=== PATIENT | female | born 1945 | race Caucasian/White ===

== ENCOUNTER 2021-04-23 22:07 | Emergency (ER) | payer MEDICARE ==
[2021-04-23] MEDS ORDERED: DIPHENHYDRAMINE 50 MG/ML VIAL ONE (22:43)
[2021-04-23] MEDS ORDERED: METHYLPREDNISOLONE 125 MG INJ ONE (22:43)
[2021-04-23] MEDS ORDERED: FAMOTIDINE 20 MG/2 ML VIAL IV ONE (22:44)
--- NOTE | 2021-04-24 00:17 | EDPHYS ---
Physician Documentation [facility] Name: Keeley Bush Age: 75 yrs Sex: Female : 1945 Arrival Date: 04/23/2021 Time: 22:08 Bed 27 Private MD: VIDA Physician Jeffery Russo HPI: 04/24 00:12 This 75 yrs old Female presents to ER via Wheelchair with complaints of ps1 Breathing Difficulty. 00:12 Patient presenting for allergic reaction. She reportedly ate some ice cream which she ps1 had never had before. Shortly thereafter she started having redness rash and reported difficulty breathing. She came to the emergency department for evaluation. She is not hypoxic there is no angioedema uvula is midline without hydrops. No stridor. No involvement of the oropharynx. Historical: - Allergies: 04/23 22:21 peanuts; bb - PMHx: 22:21 Anxiety; COPD; Hypertension; bb - Immunization history:: Adult Immunizations up to date, Client reports receiving the 1st dose of the Covid vaccine. - Social history:: Smoking status: unknown. ROS: 04/24 00:12 Constitutional: Negative for fever, chills, and weight loss, Eyes: Negative for injury, ps1 pain, redness, and discharge, ENT: Negative for injury, pain, and discharge, Neck: Negative for injury, pain, and swelling, Cardiovascular: Negative for chest pain, palpitations, and edema, Abdomen/GI: Negative for abdominal pain, nausea, vomiting, diarrhea, and constipation, MS/Extremity: Negative for injury and deformity, Neuro: Negative for headache, weakness, numbness, tingling, and seizure. Respiratory: Positive for shortness of breath. Skin: Positive for rash. Exam: 00:12 Constitutional: This is a well developed, well nourished patient who is awake, alert, ps1 and in no acute distress. Head/Face: Normocephalic, atraumatic. Eyes: Pupils equal round and reactive to light, extra-ocular motions intact. Lids and lashes normal. Conjunctiva and sclera are non-icteric and not injected. Cardiovascular: Regular rate and rhythm. No gallops, murmurs, or rubs. Normal PMI, no JVD. No pulse deficits. Respiratory: Lungs have equal breath sounds bilaterally, clear to auscultation and percussion. No rales, rhonchi or wheezes noted. No increased work of breathing, no retractions or nasal flaring. Abdomen/GI: Soft, non-tender, with normal bowel sounds. No distension or tympany. No guarding or rebound. No evidence of tenderness throughout. 00:12 ENT: Mouth: is normal, Posterior pharynx: is normal, Uvula: normal, midline, pooling of secretions, is not appreciated, Voice: is normal. 00:12 Respiratory: the patient does not display signs of respiratory distress, Respirations: normal, Breath sounds: are clear throughout. 00:12 Skin: Appearance: flushing, that are moderate. Vital Signs: 04/23 22:19 BP 100 / 67; Pulse 99; Resp 28 S; Temp 97.8(O); Pulse Ox 92% on R/A; Weight 58.97 kg bb (R); Height 5 ft. 6 in. (167.64 cm) (R); 23:06 BP 107 / 70; Pulse 90; Resp 20; Temp 98.1; Pulse Ox 100% on 2 lpm NC; Weight 58.97 kg; mr2 Height 5 ft. 7 in. (170.18 cm); 23:06 Body Mass Index 20.36 (58.97 kg, 170.18 cm) mr2 MDM: 22:29 Patient medically screened. ps1 04/24 00:14 Differential diagnosis: Allergic reaction, anaphylaxis, rash and nonspecific skin ps1 eruption, and others. Data reviewed: vital signs, nurses notes, and as a result, I will administer steroids, Solumedrol, Benadryl and Pepcid. Response to treatment: the patient's symptoms have markedly improved after treatment, the patient's symptoms have resolved after treatment. ED course: 75-year-old female presenting for evaluation of allergic reaction. No anaphylaxis. Blood pressure is normal. Responded to treatment without worsening. Rash improved. Shortness of breath gone. Home with return precautions if symptoms worsen as documented discharge instructions.. Administered Medications: 04/23 22:53 Drug: Benadryl (diphenhydrAMINE) 25 mg Route: IM; Site: right deltoid; mr2 22:53 Drug: SOLU-Medrol (methylPREDNISolone sodium succinate) 125 mg Route: IM; Site: right mr2 deltoid; 22:53 Drug: Pepcid (famotidine) 20 mg Route: IVP; Site: left antecubital; mr2 Disposition Summary: 04/24/21 00:16 Discharge Ordered Location: Home ps1 Problem: new ps1 Symptoms: are resolved ps1 Condition: Stable ps1 Diagnosis - Allergic reaction ps1 Followup: ps1 - With: Private Physician - When: As needed - Reason: Recheck today's complaints, Continuance of care, Re-evaluation by your physician Followup: ps1 - With: Emergency Department - When: As needed - Reason: Trouble breathing, Worsening of condition Discharge Instructions: - Discharge Summary Sheet ps1 - Food Allergy ps1 Forms: - Medication Reconciliation Form ps1 - Thank You Letter ps1 - Antibiotic Education ps1 - Prescription Opioid Use ps1 Signatures: Jessica Horn RN RN bb Jeffery Russo MD MD ps1 Bobby Lewis RN RN mr2
--- NOTE | 2021-04-24 00:17 | ER ---
Nurse's Notes [facility] Name: Keeley Bush Age: 75 yrs Sex: Female : 1945 Arrival Date: 04/23/2021 Time: 22:08 Bed 27 Private MD: Diagnosis: Allergic reaction Presentation: 04/23 22:19 Chief complaint: Patient states: she thinks she is having an allergic reaction she had bb difficulty breathing, is itching all over, feels like her lips are swollen. She ate some butterfinger ice cream and she is allergic to peanuts. Coronavirus screen: difficulty breathing, Client presents with at least one sign or symptom that may indicate coronavirus-19. Standard/surgical mask placed on the client. Ebola Screen: No symptoms or risks identified at this time. Initial Sepsis Screen: Does the patient meet any 2 criteria? RR > 20 per min. HR > 90 bpm. Yes Does the patient have a suspected source of infection? No. Patient's initial sepsis screen is negative. Risk Assessment: Do you want to hurt yourself or someone else? Patient reports no desire to harm self or others. Onset of symptoms was April 23, 2021. 22:19 Method Of Arrival: Wheelchair bb 22:19 Acuity: YIN 2 bb Triage Assessment: 23:05 General: Appears distressed, Behavior is anxious. Pain: Denies pain. Respiratory: mr2 Reports shortness of breath at rest Onset: The symptoms/episode began/occurred just prior to arrival, the patient has moderate shortness of breath. Historical: - Allergies: 22:21 peanuts; bb - PMHx: 22:21 Anxiety; COPD; Hypertension; bb - Immunization history:: Adult Immunizations up to date, Client reports receiving the 1st dose of the Covid vaccine. - Social history:: Smoking status: unknown. Screenin:09 Abuse screen: Denies threats or abuse. Denies injuries from another. Nutritional mr2 screening: No deficits noted. Tuberculosis screening: No symptoms or risk factors identified. Fall Risk Mental Status-. Fall Risk None identified. Assessment: 20:00 General: Appears distressed, Behavior is anxious. Derm: mr2 22:00 Cardiovascular: Rhythm is sinus tachycardia. Respiratory: Airway is patent Respiratory mr2 effort is labored, Breath sounds with wheezes bilaterally. Onset: The symptoms/episode began/occurred just prior to arrival, the patient has moderate shortness of breath Denies. EENT: Vital Signs: 22:19 BP 100 / 67; Pulse 99; Resp 28 S; Temp 97.8(O); Pulse Ox 92% on R/A; Weight 58.97 kg bb (R); Height 5 ft. 6 in. (167.64 cm) (R); 23:06 BP 107 / 70; Pulse 90; Resp 20; Temp 98.1; Pulse Ox 100% on 2 lpm NC; Weight 58.97 kg; mr2 Height 5 ft. 7 in. (170.18 cm); 23:06 Body Mass Index 20.36 (58.97 kg, 170.18 cm) mr2 ED Course: 22:08 Patient arrived in ED. bp1 22:21 Triage completed. bb 22:21 Arm band placed on Patient placed in an exam room, on a stretcher, on oxygen, on pulse bb oximetry. Family accompanied patient. 22:25 Jeffery Russo MD is Attending Physician. ps1 22:30 Patient has correct armband on for positive identification. Bed in low position. Call mr2 light in reach. Side rails up X2. 22:51 Bobby Lewis RN is Primary Nurse. mr2 23:10 No provider procedures requiring assistance completed. Patient did not have IV access mr2 during this emergency room visit. Administered Medications: 22:53 Drug: Benadryl (diphenhydrAMINE) 25 mg Route: IM; Site: right deltoid; mr2 22:53 Drug: SOLU-Medrol (methylPREDNISolone sodium succinate) 125 mg Route: IM; Site: right mr2 deltoid; 22:53 Drug: Pepcid (famotidine) 20 mg Route: IVP; Site: left antecubital; mr2 Outcome: 23:10 Condition: improved mr2 04/24 00:16 Discharge ordered by . ps1 00:36 Discharged to home ambulatory. mr2 00:36 Discharge instructions given to patient, Instructed on discharge instructions, medication usage. 00:38 Patient left the ED. mr2 Signatures: Jessica Horn, RN RN bb Jeffery Russo MD MD ps1 Cora Garcia bp1 Bobby Lewis RN RN mr2
[2021-04-24 00:49] VITALS: BP 107/70; TEMP 98.1; O2SAT 100
== END 2021-04-24 00:38 | disposition home or self-care (01) ==
LOC: ER 22:07
DX: R21 Rash and other nonspecific skin eruption (principal); I10 Essential (primary) hypertension; J44.9 Chronic obstructive pulmonary disease, unspecified; Z91.010 Allergy to peanuts
CPT/HCPCS: 96372; 96374; 99284; J1200; J2930

== ENCOUNTER 2021-06-23 10:38 | Emergency (ER) | payer OTHER ==
--- OUTSIDE RECORDS SUMMARY | 2021-06-23 10:42 | XMS REPORT | Continuity of Care Document ---
:1945 Author Organization [facility] t Address [address] [place] [address] Care Team Providers Name Role Phone Ana DILLARD Primary Care Physician Unavailable JC_Jose Attending Clinician Unavailable Jc Attending Clinician [phone] Jessica GOLDSTEIN Attending Clinician Unavailable Jessica Goldstein MD Attending Clinician Renate JUDGE Attending Clinician Rafi Warner MD Attending Clinician Doctor Unassigned, Name Attending Clinician Unavailable PETROS Admitting Clinician Unavailable Jessica GOLDSTEIN Admitting Clinician Unavailable Payers Payer Name Policy Type Policy Number Effective Date Expiration Date S keshawn [facility] MEDICARE [id number] COMPLETE (MEDICARE REPLACEMENT HMO) WELL[employer]/AARP [id number] 2020 MEDICARE ADVANTAGE 00:00:00 [employer] [id number] 2021 (MEDICARE 00:00:00 REPLACEMENT HMO) Problems Condition Condition Condition Status Onset Resolution Last Treating Co mments Source Name Details Category Date Date Treatment Clinician Date Status Status Disease Active 2018-07 Univers post hip post hip 0-17 ity of surgery surgery 00:00: [place] [address] Medical Branch Post-op Post-op Disease Active 2018-07 Univers pain pain 0-16 ity of 00:00: [place] [address] Medical Branch Encounter Encounter Disease Active 2017-07 Uni vers for for 1-04 ity of pre[place] live 00 Medical cardiovasc cardiovasc Br anch ular ular clearance clearance Essential Essential Disease Active 2017-07 Uni vers hypertensi hypertensi 1-04 it y of on on 00:00: [address] Left hip Left hip Disease Active 2017-07 Unive rs pain pain -03 ity of 00:00: [address] Allergies, Adverse Reactions, Alerts Allergy Allergy Status Severity Reaction(s) Onset Inactive Treating Comm ents Source Name Type Date Date Clinician NO KNOWN Drug Active Univers ALLERGIE Class ity of S [facility] Social History Social Habit Start Date Stop Date Quantity Comments Source History of tobacco Cigarette Smoker University of use [facility] Exposure to Not sure [facility] SARS-CoV-2 (event) [facility] Alcohol intake 2021-06-02 2021-06-02 Current University of 00:00:00 00:00:00 non-drinker of [facility] alcohol [place] (finding) Cigarettes smoked 2017-12-14 2017-12-14 [facility] ity of current (pack per 00:00:00 00:00:00 ) - Reported Branch Tobacco use and 2017-12-14 2017-12-14 Never used Universit y of exposure 00:00:00 00:00:00 [facility] Sex Ass[birth year] Universit y of 00:00:00 00:00:00 [facility] Smoking Status Start Date Stop Date Source Current every day smoker 2017-12-14 00:00:00 Uni versity of [facility] Medications Ordered Filled Start Stop Current Ordering Indication Dosage Frequency Signature Comments Components Source Medication Medication Date Date Medication? Clinician (SIG) Name Name ePHEDrine 2020-07- No Slow IV Univ ers 25 mg/5 mL 08-02 Push, ONCE it y of (5 mg/mL) 17:07: 17:20 INTRA [place] syringe 00 :01 PROCEDURE, Medica l Starting Branch on Mon06/02/21 at 1107, Until Mon06/02/21 at 1120, Routine, Intra-op water for 2020-07- No PRN, Univers irrigation 08-02 Starting ity of irrigation 16:59: 20:10 on [place] solution 00 :42 06/02/21 Medical at 1059, Branch Until Mon06/02/21 at 1410, Routine, Intra-op simethicone 2020-07- No PRN, Unive rs (GAS RELIEF 08-02 Starting ity of (SIMETHICON 16:59: 20:10 on Mon [place] as E)) 40 00 :42 06/02/21 Medical mg/0.6 mL at 1059, Branch drops Until Mon06/02/21 at 1410, Routine, Intra-op propofoL IV 2020-07- No IV Unive rs infusion 08-02 Infusion, ity o f 16:52: 17:20 CONTINUOUS [place] 00 :01 PRN, Medical Starting Branch on Mon06/02/21 at 1052, Until Mon06/02/21 at 1120, Routine, Intra-op FENTanyl PF 2020-07- No Intravenou Univers (SUBLIMAZE 08-02 s, ONCE ity o f (PF)) 16:52: 17:20 INTRA [place] injection 00 :01 PROCEDURE, Medi nettie Starting Branch on Mon06/02/21 at 1052, Until Mon06/02/21 at 1120, Routine, Intra-op lidocaine 2020-07- No Intravenou U nivers 1% 08-02 s, ONCE ity of (XYLOCAINE) 16:50: 17:20 [place] 100 mg/10 00 :01 PROCEDURE, Medi nettie mL (1 %) Starting Branch injection on Mon06/02/21 at 1050, Until Mon06/02/21 at 1120, Routine, Intra-op lactated 2020-07- No IV Univers ringers IV 08-02 Infusion, ity of infusion 16:49: 17:20 [place]OUS [place] 00 :01 PRN, Medical Starting Branch on Mon06/02/21 at 1049, Until Mon06/02/21 at 1120, Routine, Intra-op lactated 2020-07- No 1000mL at 42 Unive rs ringers IV 08-02-24 mL/hr, ity of infusion 15:30: 15:58 1,000 mL, [place] 1,000 mL 00 :00 IV Medical Infusion, Branch ONCE, 1 dose, On Mon06/02/21 at 0930, Routine, DSU Pre-op furosemide 2020-07 Yes 20mg Take 20 mg U nivers 20 mg 1-24 by mouth ity of tablet 12:10: daily. [place] [address] Medical Branch furosemide 2020-07 Yes 20mg Take 20 mg U nivers 20 mg 1-24 by mouth ity of tablet 12:10: daily. [address] Branch furosemide 2020-07 Yes 20mg Take 20 mg U nivers 20 mg 1-24 by mouth ity of tablet 12:10: daily. [address] Branch albuterol 2017-07 Yes 2.5mg Inhale 3 Uni vers 2.5 mg /3 1-07 mL every 4 ity of mL (0.083 00:00: (four) [place] %) 00 hours as Medical nebulizer needed for Bran ch solution Shortness of Breath or Wheezing. diltiazem 2017-07 Yes 240mg Take 1 Unive rs XR 240 mg 1-07 capsule by ity of 24 hr 00:00: mouth [place] capsule 00 daily. Medical Branch sennosides 2017-07 Yes 8.6mg Take 1 Univ ers 8.6 mg 1-07 tablet by ity of tablet 00:00: mouth 2 [place] 00 (two) Medical times Branch daily. buPROPion 2017-07 Yes 100mg Take 1 Unive rs 100 mg 1-07 tablet by ity of tablet 00:00: mouth [place] 00 daily. Medical Branch isosorbide 2017-07 Yes 30mg Take 1 Unive rs mononitrate 1-07 tablet by ity of 30 mg 24 hr 00:00: mouth [place] tablet 00 daily. Medical Branch acetaminoph 2017-07 Yes 1{tbl} Take 1-2 Univers en-codeine 1-07 tablets by ity of (TYLENOL-CO 00:00: mouth [place] DEINE #3) 00 every 4 Medical 300-30 mg (four) Branch tablet hours as needed for Pain (scale 1-3) or Pain (scale 4-6). albuterol 2017-07 Yes 2.5mg Inhale 3 Uni vers 2.5 mg /3 1-07 mL every 4 ity of mL (0.083 00:00: (four) [place] %) 00 hours as Medical nebulizer needed for Bran ch solution Shortness of Breath or Wheezing. diltiazem 2017-07 Yes 240mg Take 1 Unive rs XR 240 mg 1-07 capsule by ity of 24 hr 00:00: mouth [place] capsule 00 daily. Medical Branch sennosides 2017-07 Yes 8.6mg Take 1 Univ ers 8.6 mg 1-07 tablet by ity of tablet 00:00: mouth 2 [place] 00 (two) Medical times Branch daily. buPROPion 2017-07 Yes 100mg Take 1 Unive rs 100 mg 1-07 tablet by ity of tablet 00:00: mouth [place] 00 daily. Medical Branch isosorbide 2017-07 Yes 30mg Take 1 Unive rs mononitrate 1-07 tablet by ity of 30 mg 24 hr 00:00: mouth [place] tablet 00 daily. Medical Branch acetaminoph 2017-07 Yes 1{tbl} Take 1-2 Univers en-codeine 1-07 tablets by ity of (TYLENOL-CO 00:00: mouth [place] DEINE #3) 00 every 4 Medical 300-30 mg (four) Branch tablet hours as needed for Pain (scale 1-3) or Pain (scale 4-6). albuterol 2017-07 Yes 2.5mg Inhale 3 Uni vers 2.5 mg /3 1-07 mL every 4 ity of mL (0.083 00:00: (four) [place] %) 00 hours as Medical nebulizer needed for Bran ch solution Shortness of Breath or Wheezing. diltiazem 2017-07 Yes 240mg Take 1 Unive rs XR 240 mg 1-07 capsule by ity of 24 hr 00:00: mouth [place] capsule 00 daily. Medical Branch sennosides 2017-07 Yes 8.6mg Take 1 Univ ers 8.6 mg 1-07 tablet by ity of tablet 00:00: mouth 2 [place] 00 (two) Medical times Branch daily. buPROPion 2017-07 Yes 100mg Take 1 Unive rs 100 mg 1-07 tablet by ity of tablet 00:00: mouth [place] 00 daily. Medical Branch isosorbide 2017-07 Yes 30mg Take 1 Unive rs mononitrate 1-07 tablet by ity of 30 mg 24 hr 00:00: mouth [place] tablet 00 daily. Medical Branch acetaminoph 2017-07 Yes 1{tbl} Take 1-2 Univers en-codeine 1-07 tablets by ity of (TYLENOL-CO 00:00: mouth [place] DEINE #3) 00 every 4 Medical 300-30 mg (four) Branch tablet hours as needed for Pain (scale 1-3) or Pain (scale 4-6). Immunizations Ordered Filled Immunization Date Status Comments [facility] e Immunization Name Name SARS-COV-2 COVID-19 2020-09-11 Completed Unive rsity of MODERNA VACCINE 00:00:00 [facility] Branch SARS-COV-2 COVID-19 2020-09-11 Completed Unive rsity of MODERNA VACCINE 00:00:00 [facility] Branch SARS-COV-2 COVID-19 2020-09-11 Completed Unive rsity of MODERNA VACCINE 00:00:00 [facility] Branch SARS-COV-2 COVID-19 2020-08-14 Completed Unive rsity of MODERNA VACCINE 00:00:00 [facility] Branch SARS-COV-2 COVID-19 2020-08-14 Completed Unive rsity of MODERNA VACCINE 00:00:00 [facility] SARS-COV-2 COVID-19 2020-08-14 Completed Unive rsity of MODERNA VACCINE 00:00:00 [facility] Pneumococcal 2019-04-25 Completed University o f Polysaccharide, 00:00:00 [facility] PPSV23 (PNEUMOVAX) Branch Influenza High Dose 2019-04-25 Completed Unive rsity of 00:00:00 [facility] Pneumococcal 2019-04-25 Completed University o f Polysaccharide, 00:00:00 [facility] PPSV23 (PNEUMOVAX) Branch Influenza High Dose 2019-04-25 Completed Unive rsity of 00:00:00 [facility] Pneumococcal 2019-04-25 Completed University o f Polysaccharide, 00:00:00 [facility] PPSV23 (PNEUMOVAX) Branch Influenza High Dose 2019-04-25 Completed Unive rsity of 00:00:00 [facility] Vital Signs Vital Name Observation Time Observation Value Comments Source Systolic blood 2021-06-02 17:19:00 121 mm[Hg] Univer sity of pressure [facility] Diastolic blood 2021-06-02 17:19:00 72 mm[Hg] Unive rsity of pressure [facility] Heart rate 2021-06-02 17:19:00 88 /min [facility] Body temperature 2021-06-02 17:19:00 36.39 [facility] Oxygen saturation in 2021-06-02 17:19:00 99 /min [facility] blood by [facility] Pulse oximetry [place] Respiratory rate 2021-06-02 15:51:00 18 /min [facility] Body height 2021-05-18 16:49:00 167.6 cm [facility] Body weight 2021-05-18 16:49:00 61.2 kg [facility] BMI 2021-05-18 16:49:00 21.79 kg/m2 [facility] Respiratory rate 2021-06-02 17:16:00 15 /min [facility] Procedures Procedure Date / Time Performing Clinician Source Performed COLONOSCOPY (ENDO) 2021-06-02 17:02:26 Anshu Dillard [facility] EGD (ENDO) 2021-06-02 16:48:00 Anshu Dillard [facility] ESOPHAGOGASTRODUODENOSCOPY 2021-06-02 16:39:00 John Goldstein [facility] COLONOSCOPY 2021-06-02 16:39:00 Morgan Goldstein [facility] PATIENT QUESTIONNAIRE 2021-06-02 06:01:00 Doctor Unassigned, [facility] Name [facility] EXTERNAL PROVIDER RECORDS 2021-05-18 06:01:00 Doctor Unassigned, [facility] Name [facility] EXTERNAL PROVIDER RECORDS 2021-05-17 06:01:00 Doctor Unassigned, [facility] Name [facility] Encounters Start End Encounter Admission Attending Care Care Encounter Source Date/Time Date/Time Type Type Clinicians Facility Department ID 2021-06-11 2021-06-11 Outpatient [facility] [id number] [place] 11:24:00 11:24:00 [facility] 2021-06-11 2021-06-11 Outpatient [facility] [id number] 00:00:00 00:00:00 Sabiha [id number] 2021-06-10 2021-06-10 Outpatient [facility] [id number] [place] 06:16:00 06:16:00 [facility] 2021-06-09 2021-06-09 Outpatient [facility] [id number] [place] 11:48:00 11:48:00 [facility]01 [facility] 2021-06-02 2021-06-02 Outpatient R [facility] [id number] Univers 09:17:00 12:10:00 MORGAN Jacome [facility] 2021-06-02 2021-06-02 Surgery [facility] [id number] Univers 10:30:00 11:22:00 eMorgan [id number] [facility]y [facility] [id number] [id number] [facility] 020 Branch 2021-06-02 2021-06-02 Anesthesia Hector Dewitt [facility] [id number] Univers 10:49:00 11:19:00 Event Justin Warner [id number] [facility]y [facility] [id number] [id number] [facility] 020 Branch 2021-06-02 2021-06-02 Orders Doctor KASEY [id number] Univers 00:00:00 00:00:00 Only Unassigned, KECIA [id number] ity of [place] [facility] [id number] [place] [id number] [place] [address] Branch 2021-06-01 2021-06-[address] [facility] [id number] Univers 09:00:00 09:00:00 MORGAN Jacome [facility] 2021-02-18 2021-02-18 Outpatient DMG [id number] [facility] 11:00:00 11:00:00 0812 Medica l Group Results This patient has no known results.
[2021-06-23 11:52] LABS: Absolute Lymphocytes (CBC) 0.3 K/uL (0.7-4.9); Basophils % 0.2 % (0-1.3); Hematocrit 32.6 % (36.0-45.0); Lymphocytes % 3.2 % (15.3-44.8); MPV 8.2 fL (7.6-11.3); RBC Red Blood Cell Count 3.48 M/uL (3.86-4.86)
--- NOTE | 2021-06-23 11:59 | RAD REPORT ---
EXAM DESCRIPTION: RAD - Chest Single View - 06/23/2021 11:32 am CLINICAL HISTORY: SOB COMPARISON: Chest Single View dated 07/03/2017; Chest Single View dated 06/15/2017; Chest Single View dated 03/02/2017 FINDINGS: Lines: None. Lungs: Scarring in the left mid lung. Mild irregular nodularity in the right mid lung. Pleural: No significant pleural effusions or pneumothorax. Cardiac: The heart size is within normal limits. Bones: No acute fractures. ACDF in the cervical spine. Other: IMPRESSION: Right mid lung nodularity could reflect infection or inflammation versus chronic changes .
[2021-06-23 12:07] LABS: Protime INR 1.07
[2021-06-23 12:45] LABS: ALT/SGPT 67 U/L (12-78); AST/SGOT 74 U/L (15-37); Albumin 2.7 g/dL (3.4-5.0); Alkaline Phosphatase 351 U/L (45-117); BUN Blood Urea Nitrogen 61 mg/dL (7-18); Bicarbonate 21 mmol/L (21-32); Bilirubin Direct 0.2 mg/dL (0-0.2); Bilirubin Total 0.5 mg/dL (0.2-1.0); Glucose Level 92 mg/dL (74-106); Magnesium 2.7 mg/dL (1.8-2.4); NT PRO-BNP 1680 pg/mL (<450); Potassium 4.8 mmol/L (3.5-5.1); Protein, Total 6.1 g/dL (6.4-8.2); Sodium Level 141 mmol/L (136-145); Troponin (Emerg Dept Use Only) < 0.02 ng/mL (0.0-0.045)
[2021-06-23 12:55] LABS: Blood Morphology Comment NOT SEEN (NOT SEEN); Platelet Estimate ADEQ
--- NOTE | 2021-06-23 13:12 | RAD REPORT ---
EXAM DESCRIPTION: RAD - Forearm Right - 06/23/2021 1:01 pm CLINICAL HISTORY: Right arm pain status post fall FINDINGS: No fracture is seen involving the for arm Small bony/calcific density along the dorsal aspect of the wrist. This probably is chronic. If the pa tient has point tenderness in this region and this is the site of trauma then this probably indicates an acute fracture
[2021-06-23 13:43] LABS: Urine Blood Negative (Negative); Urine Glucose Negative (Negative); Urine Protein 1+ (Negative); Urine pH 5.5 (5.0-7.0)
[2021-06-23] MEDS ORDERED: NA CHLORIDE 0.9% 500 ML ONE (14:35)
--- NOTE | 2021-06-23 15:28 | EDPHYS ---
Physician Documentation [facility] Name: Keeley Bush Age: 75 yrs Sex: Female : 1945 Arrival Date: 06/23/2021 Time: 10:39 Bed 18 Private MD: ED Physician Last Taylor HPI: 06/23 11:03 This 75 yrs old Unknown Female presents to ER via Wheelchair with complaints of General jmm Weakness, Breathing Difficulty, Chest Pain. 11:03 The patient has shortness of breath at rest, with light activity. Onset: The jmm symptoms/episode began/occurred gradually, 1 week(s) ago. Duration: The symptoms are continuous. The patient's shortness of breath is aggravated by nothing, is alleviated by nothing. 85-year-old female with history of COPD, hypertension the presents emerged part with complaints of progressive worsening shortness of breath over the past week. Patient recently received an iron infusion for anemia. Patient is also currently being evaluated for liver cancer. Denies abdominal pain.. Historical: - Allergies: 10:53 peanuts; ll1 - PMHx: 10:53 Anxiety; COPD; Hypertension; ll1 - Immunization history:: Client reports receiving the 2nd dose of the Covid vaccine. - Social history:: Smoking status: Patient reports the use of cigarette tobacco products, smokes one-half pack cigarettes per day. ROS: 11:03 Constitutional: Negative for fever, chills, and weight loss, Cardiovascular: Negative jmm for chest pain, palpitations, and edema. 11:03 Respiratory: Positive for cough, shortness of breath. 11:03 All other systems are negative. Exam: 11:03 Constitutional: This is a well developed, well nourished patient who is awake, alert, jmm and in no acute distress. Head/Face: atraumatic. Eyes: EOMI, no conjunctival erythema appreciated ENT: Moist Mucus Membranes Neck: Trachea midline, Supple Chest/axilla: Normal chest wall appearance and motion. Cardiovascular: Regular rate and rhythm. No edema appreciated Respiratory: Normal respirations, no respiratory distress appreciated Abdomen/GI: Non distended, soft Back: Normal ROM Skin: General appearance color normal 11:03 Musculoskeletal/extremity: ROM: intact in all extremities, Right distal radius and ulna nontender to palpation, no obvious deformity appreciated, full radial pulse, compartments are soft, neurovascular intact, no deformity appreciated. 11:03 Neuro: Orientation: is normal, Mentation: is normal, Memory: is normal. 11:03 Psych: Behavior/mood is pleasant, cooperative. Vital Signs: 10:51 BP 127 / 72; Pulse 76; Resp 17; Temp 97.5; Pulse Ox 96% on R/A; Weight 48.99 kg; Height ll1 5 ft. 7 in. (170.18 cm); Pain 7/10; 12:00 BP 108 / 71; Pulse 74; Resp 16; Pulse Ox 97% ; bp 13:00 BP 114 / 64; Pulse 71; Resp 16; Pulse Ox 97% ; bp 14:00 BP 110 / 73; Pulse 85; Resp 16; Pulse Ox 97% ; bp 15:00 BP 132 / 60; Pulse 77; Resp 18; Pulse Ox 97% ; bp 10:51 Body Mass Index 16.92 (48.99 kg, 170.18 cm) ll1 MDM: 11:03 Patient medically screened. [facility] 15:27 Data reviewed: vital signs, nurses notes. Counseling: I had a detailed discussion with [facility] the patient and/or guardian regarding: the historical points, exam findings, and any diagnostic results supporting the discharge/admit diagnosis, lab results, radiology results, the need for outpatient follow up, to return to the emergency department if symptoms worsen or persist or if there are any questions or concerns that arise at home. 06/23 11:06 Order name: Basic Metabolic Panel [facility] 06/23 11:06 Order name: CBC with Diff; Complete Time: 13:03 [facility] 06/23 11:06 Order name: LFT's [facility] 06/23 11:06 Order name: Magnesium; Complete Time: 13:03 [facility] 06/23 11:06 Order name: NT PRO-BNP; Complete Time: 13:03 [facility] 06/23 11:06 Order name: PT-INR; Complete Time: 12:27 [facility] 06/23 11:06 Order name: Troponin (emerg Dept Use Only); Complete Time: 13:03 [facility] 06/23 11:06 Order name: XRAY Chest (1 view); Complete Time: 12:01 [facility] 06/23 11:06 Order name: SARS-COV-2 RT PCR (Document "Date of Onset" if Symptomatic); Complete Time: [facility] 13:03 12/15 11:06 Order name: AMMONIA; Complete Time: 12:27 [facility] 06/23 11:06 Order name: Basic Metabolic Panel; Complete Time: 13:03 [facility] 06/23 11:07 Order name: Liver (Hepatic) Function; Complete Time: 13:03 [facility] 06/23 12:56 Order name: Manual Differential; Complete Time: 13:03 [facility] 06/23 13:43 Order name: Urine Dipstick-Ancillary; Complete Time: 13:53 [facility] 06/23 11:06 Order name: EKG; Complete Time: 11:07 [facility] 06/23 11:06 Order name: Cardiac monitoring; Complete Time: 12:28 [facility] 06/23 11:06 Order name: EKG - Nurse/Tech; Complete Time: 11:25 [facility] 06/23 11:06 Order name: IV Saline Lock; Complete Time: 12:28 [facility] 06/23 11:06 Order name: Labs collected and sent; Complete Time: 12:28 [facility] 06/23 11:06 Order name: O2 Per Protocol; Complete Time: 11:11 [facility] 06/23 11:06 Order name: O2 Sat Monitoring; Complete Time: 11:11 [facility] 06/23 11:06 Order name: Urine Dipstick-Ancillary (obtain specimen); Complete Time: 13:43 [facility] 06/23 12:27 Order name: Forearm Right XRAY; Complete Time: 13:13 [facility] Administered Medications: 14:20 Drug: NS 0.9% 500 ml Route: IV; Rate: bolus; Site: left antecubital; bp 16:09 Follow up: IV Status: Completed infusion; IV Intake: 100ml bp Disposition Summary: 06/23/21 15:27 Discharge Ordered Location: Home [facility] Condition: Stable [facility] Diagnosis - Dehydration jmm - Pneumonia [facility] Followup: [facility] - With: Private Physician - When: 2 - 3 days - Reason: Recheck today's complaints, Continuance of care, Re-evaluation by your physician Discharge Instructions: - Discharge Summary Sheet [facility] - Dehydration, Elderly jmm - Community-Acquired Pneumonia, Adult [facility] Forms: - Medication Reconciliation Form [facility] - Thank You Letter [facility] - Antibiotic Education m - Prescription Opioid Use [facility] Prescriptions: - cefdinir 300 mg Oral capsule - take 1 capsule by ORAL route every 12 hours; 20 capsule; Refills: 0, Product jmm Selection Permitted Addendum: 06/26/2021 07:16 Co-signature as Attending Physician, Last Taylor MD I agree with the assessment and r n plan of care. Attestation: The patient's history, exam findings, diagnostics, and a summary of any interventions or procedures was reviewed in detail with Matt HIDALGO. Signatures: Dispatcher [employer] EDMatt Evangelista PA PA jmm Nieto, Roman, MD MD rn Peltier, Brian, RN RN Marah Red RN RN ll1
--- NOTE | 2021-06-23 15:28 | ER ---
Nurse's Notes [facility] Name: Keeley Bush Age: 75 yrs Sex: Female : 1945 Arrival Date: 06/23/2021 Time: 10:39 Bed 18 Private MD: Diagnosis: Dehydration;Pneumonia Presentation: 06/23 10:51 Chief complaint: Patient states: Fall last night. R arm pain, dressing in place. ll1 Reported SOB worse throughout the night with chest tightness. Was supposed to get a liver biopsy today. Had iron transfusion last week, very weak since. Coronavirus screen: Vaccine status: Patient reports receiving the 2nd dose of the covid vaccine. Client denies travel out of the [place] in the last 14 days. At this time, the client does not indicate any symptoms associated with coronavirus-19. Ebola Screen: Patient denies travel to an Ebola-affected area in the 21 days before illness onset. Initial Sepsis Screen: Does the patient meet any 2 criteria? No. Patient's initial sepsis screen is negative. Does the patient have a suspected source of infection? Yes: Skin breakdown/wound. Risk Assessment: Do you want to hurt yourself or someone else? Patient reports no desire to harm self or others. Onset of symptoms was June 22, 2021. 10:51 Method Of Arrival: Wheelchair ll1 10:51 Acuity: YIN 3 ll1 Triage Assessment: 11:00 General: Appears distressed, uncomfortable, Behavior is cooperative, appropriate for bp age, anxious. Pain: Complains of pain in right arm. EENT: No deficits noted. Neuro: Level of Consciousness is awake, alert, obeys commands, Oriented to Appropriate for age. Cardiovascular: No deficits noted. Respiratory: Reports shortness of breath Onset: The symptoms/episode began/occurred yesterday, the patient has mild shortness of breath. GI: No signs and/or symptoms were reported involving the gastrointestinal system. : No signs and/or symptoms were reported regarding the genitourinary system. Derm: No deficits noted. Musculoskeletal: No deficits noted. Injury Description: R FA SKIN TEAR. Historical: - Allergies: 10:53 peanuts; ll1 - PMHx: 10:53 Anxiety; COPD; Hypertension; ll1 - Immunization history:: Client reports receiving the 2nd dose of the Covid vaccine. - Social history:: Smoking status: Patient reports the use of cigarette tobacco products, smokes one-half pack cigarettes per day. Screenin:00 Abuse screen: Denies threats or abuse. Denies injuries from another. Nutritional bp screening: No deficits noted. Tuberculosis screening: No symptoms or risk factors identified. Fall Risk Fall in past 12 months (25 points). No secondary diagnosis (0 pts). No IV (0 pts). Ambulatory Aid- None/Bed Rest/Nurse Assist (0 pts). Gait- Normal/Bed Rest/Wheelchair (0 pts) Mental Status- Oriented to own ability (0 pts). Total Hunter Fall Scale indicates Low Risk Score (25-44 pts). Fall prevention measures have been instituted. Side Rails Up X 2 Placed close to Nursing Station Frequent Obs/Assesments occuring As available Patient and Family Educated on Fall Prevention Program and strategies. Assessment: 11:00 General: SEE TRIAGE NOTE. bp 13:03 Reassessment: No changes from previously documented assessment. Patient and/or family bp updated on plan of care and expected duration. Pain level reassessed. 15:00 Reassessment: No changes from previously documented assessment. Patient and/or family bp updated on plan of care and expected duration. Pain level reassessed. DISPO PENDING. 16:07 Reassessment: PT D/C HOME VIA W/C WITH FAMILY, DX WITH PNEUMONIA. bp Vital Signs: 10:51 BP 127 / 72; Pulse 76; Resp 17; Temp 97.5; Pulse Ox 96% on R/A; Weight 48.99 kg; Height ll1 5 ft. 7 in. (170.18 cm); Pain 7/10; 12:00 BP 108 / 71; Pulse 74; Resp 16; Pulse Ox 97% ; bp 13:00 BP 114 / 64; Pulse 71; Resp 16; Pulse Ox 97% ; bp 14:00 BP 110 / 73; Pulse 85; Resp 16; Pulse Ox 97% ; bp 15:00 BP 132 / 60; Pulse 77; Resp 18; Pulse Ox 97% ; bp 10:51 Body Mass Index 16.92 (48.99 kg, 170.18 cm) ll1 ED Course: 10:39 Patient arrived in ED. am2 10:43 Matt Paredes PA is PHCP. tommie 10:43 Last Taylor MD is Attending Physician. [facility] 10:44 Hector Puga, RN is Primary Nurse. bp 10:53 Triage completed. ll1 10:53 Arm band placed on Patient placed in an exam room, on a stretcher. ll1 11:00 Patient has correct armband on for positive identification. Bed in low position. Call bp light in reach. Side rails up X2. 11:25 EKG done, by ED staff, reviewed by Matt HIDALGO. 3 11:32 XRAY Chest (1 view) In Process Unspecified. EDMS 12:28 LFT's Sent. bp 12:28 Basic Metabolic Panel Sent. bp 13:01 Forearm Right XRAY In Process Unspecified. EDMS 16:07 No provider procedures requiring assistance completed. IV discontinued, intact, bp bleeding controlled, No redness/swelling at site. Pressure dressing applied. Administered Medications: 14:20 Drug: NS 0.9% 500 ml Route: IV; Rate: bolus; Site: left antecubital; bp 16:09 Follow up: IV Status: Completed infusion; IV Intake: 100ml bp Intake: 16:09 IV: 100ml; Total: 100ml. bp Outcome: 15:27 Discharge ordered by MD. [facility] 16:07 Discharged to home via wheelchair, with family. bp 16:07 Condition: stable 16:07 Discharge instructions given to patient, family, Instructed on discharge instructions, follow up and referral plans. medication usage, Demonstrated understanding of instructions, follow-up care, medications, Prescriptions given X 1. 16:09 Patient left the ED. bp Signatures: Dispatcher [employer] EDTN Matt Paredes PA PA [facility] Yumiko Vazquez [facility] Hector Puga, RN RN Marah Red, JESSE RN ll1
[2021-06-23 16:20] VITALS: TEMP 97.5
[2021-06-23 16:22] VITALS: O2SAT 97
[2021-06-23 16:26] VITALS: BP 132/60
== END 2021-06-23 16:09 | disposition home or self-care (01) ==
LOC: ER 10:38
DX: J18.9 Pneumonia, unspecified organism (principal); E86.0 Dehydration; F17.210 Nicotine dependence, cigarettes, uncomplicated; Z20.822 Contact with and (suspected) exposure to COVID-19
CPT/HCPCS: 96361; 93005; 85025; 80048; 36415; 82140; 83735; 85610; 80076; 81003; 84484; 83880; 71045; 73090; 96360; 99284; U0003; J7040